=== PATIENT | female | born 1965 | race Caucasian/White ===

== ENCOUNTER 2017-10-10 09:10 | Emergency (ER) | payer MEDICAID ==
--- NOTE | 2017-10-10 09:22 | Emergency Department Record ---
History of Present Illness - General Chief complaint: ENT Stated complaint: SORE THROAT Time Seen by Provider: 10/10/17 09:21 Source: Patient Mode of Arrival: Ambulatory Limitations: No limitations - History of Present Illness Initial comments: The patient is here due to a [address] The pain is worse on the R. She denies any fever, chills, cough, PIMENTEL or voice changes. She did start on a Zpak recently for it but it is not helping. complaint: Sore throat Onset/Timin -: Days(s) Location: Throat Severity scale (1-10): 4 Quality: Burning Consistency: Constant Improves with: None Worsens with: Eating, Swallowing Associated Symptoms: Sore throat - Related Data Home Medications Medication Instructions Recorded Confirmed Last Taken Azithromycin 1 tab PO DAILY 10/10/17 10/10/17 Unknown Previous Rx's Medication Instructions Recorded Cephalexin [Keflex] 500 mg PO TID #21 cap 10/10/17 Prednisone [Prednisone 20Mg] 40 mg PO DAILY #8 tab 10/10/17 Allergies Allergy/AdvReac Type Severity Reaction Status Date / Time bupropion HCl Allergy Mild HIVES Unverified 02/12/15 19:53 [From Wellbutrin] Travel Screening - Travel/Exposure Within Last 30 Days Have you traveled within the last 30 days?: No Review of Systems Constitutional: Denies: Chills, Fever Eyes: Denies: Eye discharge ENT: Reports: Throat pain. Denies: Congestion Respiratory: Denies: Cough, Dyspnea Past Medical History - SOCIAL HISTORY Smoking Status: Never smoker Alcohol Use: Rare Drug Use: None - RESPIRATORY Hx Respiratory Disorders: No - CARDIOVASCULAR Hx Cardio Disorders: No - NEURO Hx Neuro Disorders: No - GI Hx GI Disorders: No - Hx Genitourinary Disorders: No - ENDOCRINE Hx Endocrine Disorders: No - MUSCULOSKELETAL Hx Musculoskeletal Disorders: No - PSYCH Hx Psych Problems: No - HEMATOLOGY/ONCOLOGY Hx Hematology/Oncology Disorders: No Family Medical History Any Significant Family History?: No Physical Exam - General General Appearance: Alert, Oriented x3, Cooperative, No acute distress - Head Head exam: Atraumatic, Normocephalic, Normal inspection - Eye Eye exam: Normal appearance, PERRL, EOMI - ENT ENT exam: negative: Normal orophraynx Throat exam: Tonsillar erythema, Tonsillomegaly, Tonsillar exudate (deep in the tonsillar pillars R>L), Other (The uvula is midline.). negative: Normal inspection, R peritonsillar mass, L peritonsillar mass - Neck Neck exam: Normal inspection, Full ROM, Lymphadenopathy (There is tender bilateral anterior tonsillar nodes.). negative: Meningismus, Tenderness - Respiratory Respiratory exam: Normal lung sounds bilaterally. negative: Respiratory distress - Cardiovascular Cardiovascular Exam: Regular rate, Normal rhythm, Normal heart sounds Course Vital Signs 10/10/17 09:17 Temperature 98.4 F Pulse Rate 74 Respiratory 20 Rate Blood Pressure 120/87 Pulse Ox 98 - Reevaluation(s) Reevaluation #1: I did explain to the patient that due to the high likelyhood of Strep she is to stop the Zpak and start Keflex. She is to have the throat rechecked if not better. 10/10/17 09:32 Disposition Disposition: Discharge Clinical Impression: Pharyngitis Qualifiers: Pharyngitis/tonsillitis etiology: unspecified etiology Qualified Code(s): J02.9 - Acute pharyngitis, unspecified Disposition: Home, Self-Care Condition: (2) Stable Instructions: Pharyngitis (ED) Additional Instructions: Please take the Keflex and Prednisone as directed. Please see your family doctor or return to the ER tomorrow if not better. Prescriptions: Cephalexin [Keflex] 500 mg PO TID #21 cap Prednisone [Prednisone 20Mg] 40 mg PO DAILY #8 tab Forms: Patient Portal Access Time of Disposition: 09:29 Quality - Quality Measures Quality Measures: N/A - Blood Pressure Screening View Details: Yes Does Patient Have Any of the Following: No Blood Pressure Classification: Pre-Hypertensive BP Reading Systolic Measurement: 120 Diastolic Measurement: 87 Screening for High Blood Pressure: < Pre-Hypertensive BP, F/U Documented > [ G8950] Pre-Hypertensive Follow-up Interventions: Referral to alternative/primary care provider.
--- NOTE | 2017-10-10 09:50 | Emergency Department Record ---
History of Present Illness - General Chief complaint: ENT Stated complaint: SORE THROAT Time Seen by Provider: 10/10/17 09:21 Source: Patient Mode of Arrival: Ambulatory Limitations: No limitations - History of Present Illness MD complaint: Sore throat Onset/Timin -: Days(s) Location: Throat Severity scale (1-10): 4 Quality: Burning Consistency: Constant Improves with: None Worsens with: Eating, Swallowing Associated Symptoms: Sore throat - Related Data Home Medications Medication Instructions Recorded Confirmed Last Taken Azithromycin 1 tab PO DAILY 10/10/17 10/10/17 Unknown Previous Rx's Medication Instructions Recorded Cephalexin [Keflex] 500 mg PO TID #21 cap 10/10/17 Prednisone [Prednisone 20Mg] 40 mg PO DAILY #8 tab 10/10/17 Allergies Allergy/AdvReac Type Severity Reaction Status Date / Time bupropion HCl Allergy Mild HIVES Unverified 02/12/15 19:53 [From Wellbutrin] Travel Screening - Travel/Exposure Within Last 30 Days Have you traveled within the last 30 days?: No Review of Systems Constitutional: Denies: Chills, Fever Eyes: Denies: Eye discharge ENT: Reports: Throat pain. Denies: Congestion Respiratory: Denies: Cough, Dyspnea Past Medical History - SOCIAL HISTORY Smoking Status: Never smoker Alcohol Use: Rare Drug Use: None - RESPIRATORY Hx Respiratory Disorders: No - CARDIOVASCULAR Hx Cardio Disorders: No - NEURO Hx Neuro Disorders: No - GI Hx GI Disorders: No - Hx Genitourinary Disorders: No - ENDOCRINE Hx Endocrine Disorders: No - MUSCULOSKELETAL Hx Musculoskeletal Disorders: No - PSYCH Hx Psych Problems: No - HEMATOLOGY/ONCOLOGY Hx Hematology/Oncology Disorders: No Family Medical History Any Significant Family History?: No Physical Exam - General Limitations: No limitations - ENT Throat exam: Other (The patient is speaking in full sentences with a normal voice. There are no signs of any peritonsillar abscess.) Course Vital Signs 10/10/17 09:17 Temperature 98.4 F Pulse Rate 74 Respiratory 20 Rate Blood Pressure 120/87 Pulse Ox 98 Disposition Clinical Impression: Pharyngitis Qualifiers: Pharyngitis/tonsillitis etiology: unspecified etiology Qualified Code(s): J02.9 - Acute pharyngitis, unspecified Disposition: Home, Self-Care Condition: (2) Stable Instructions: Pharyngitis (ED) Additional Instructions: Please take the Keflex and Prednisone as directed. Please see your family doctor or return to the ER tomorrow if not better. Prescriptions: Cephalexin [Keflex] 500 mg PO TID #21 cap Prednisone [Prednisone 20Mg] 40 mg PO DAILY #8 tab Forms: Patient Portal Access Quality - Quality Measures Quality Measures: N/A - Blood Pressure Screening View Details: Yes Does Patient Have Any of the Following: No Blood Pressure Classification: Pre-Hypertensive BP Reading Systolic Measurement: 120 Diastolic Measurement: 87 Screening for High Blood Pressure: < Pre-Hypertensive BP, F/U Documented > [ G8950] Pre-Hypertensive Follow-up Interventions: Referral to alternative/primary care provider.
== END 2017-10-10 09:44 | disposition home or self-care (01) ==
LOC: ER 09:10
DX: J02.9 Acute pharyngitis, unspecified (principal); R13.10 Dysphagia, unspecified
CPT/HCPCS: 99282